=== PATIENT | male | born 1980 | race African-American/Black ===

== ENCOUNTER 2020-02-06 20:29 | Emergency (ER) | payer OTHER ==
[~2020-02-06] VITALS: Ht 182.9 cm; Wt 81.6 kg
--- NOTE | 2020-02-06 20:48 | NUR ---
PT AAOX4. AMBULATORY WITH STEADY GAIT. BIBSELF C/O MID ABD PAIN 10/10 +VOMITING. PT PLACED IN BED 9, ON MONITOR AND PULSE OX, VSS. JUVENILE DETENTION OFFICER AT BEDSIDE FOR EVAL. NO ACUTE DISTRESS NOTED.
--- NOTE | 2020-02-06 20:50 | NUR ---
VIDEOTAPE RECORDING ENGINEER AT BEDSIDE FOR LABS
[2020-02-06] MEDS ORDERED: ONDANSETRON HCL/PF 4 MG/2 ML VIAL IVP ONE (21:00)
[2020-02-06] MEDS ORDERED: PANTOPRAZOLE 40 MG VIAL IV ONE (21:00)
[2020-02-06] MEDS ORDERED: IV NS 0.9% 1,000 ML BAG IV ONE ×2 (21:00→22:00)
[2020-02-06] MEDS ORDERED: FAMOTIDINE/PF INJ 20 MG/2 ML VIAL IV ONE ×2 (21:00→21:07)
[2020-02-06] MEDS ORDERED: DICYCLOMINE HCL 10 MG/5 ML UDC PO ONE (21:00)
[2020-02-06 21:04] LABS: BASOPHILS # (AUTO) 0.1 /CMM (0.0-0.2); BASOPHILS % (AUTO) 1.1 % (0.0-2.0); HEMATOCRIT 43 % (39-51); HEMOGLOBIN 14.1 g/dL (13.5-17.5); LYMPHOCYTES # (AUTO) 0.5 /CMM (0.8-4.8); LYMPHOCYTES % (AUTO) 4.5 % (20.0-44.0); MEAN CORPUSCULAR HGB CONC 33 g/dl (31.0-36.0); MEAN CORPUSCULAR VOLUME 81 fL (80-96); MONOCYTES # (AUTO) 0.9 /CMM (0.1-1.30); MONOCYTES % (AUTO) 8.5 % (2.0-12.0); NEUTROPHILS % (AUTO) 85.9 % (43.0-81.0); PLATELET COUNT (AUTO) 273 /CMM (150-450); RED BLOOD CELL COUNT(AUTO) 5.27 MIL/uL (4.5-6.0); WHITE BLOOD COUNT (AUTO) 10.4 K/uL (4.3-11.0)
[2020-02-06] MEDS ORDERED: ONDANSETRON HCL/PF 4 MG/2 ML VIAL ONE (21:07)
[2020-02-06] MEDS ORDERED: PANTOPRAZOLE 40 MG VIAL ONE (21:07)
[2020-02-06] MEDS ORDERED: DICYCLOMINE HCL 10 MG CAPSULE PO ONE (21:07)
--- NOTE | 2020-02-06 21:07 | NUR ---
Patient is resting comfortably in bed. Easily aroused. VSS.
[2020-02-06 21:16] LABS: ALBUMIN 4.4 g/dL (3.4-5.0); BILIRUBIN,DIRECT 0.2 mg/dL (0.0-0.2); BILIRUBIN,TOTAL 0.7 mg/dL (0.2-1.0); CALCIUM, SERUM 9.4 mg/dL (8.5-10.1); CREATININE 1.4 mg/dL (0.6-1.3); POTASSIUM 2.9 mmol/L (3.5-5.1); TOTAL PROTEIN, SERUM 7.9 g/dL (6.4-8.2)
[2020-02-06] MEDS ORDERED: LIDOCAINE VISCOUS 2% UD 15 ML UDC MM ONE (21:30)
[2020-02-06] MEDS ORDERED: BELLADONNA /PHENOBARB 5 ML UDC 5 ML UDC PO ONE (21:30)
[2020-02-06] MEDS ORDERED: MAG HYDROX/AL HYDROX/SIMETH 30 ML UDC PO ONE (21:30)
[2020-02-06] MEDS ORDERED: MAG HYDROX/AL HYDROX/SIMETH 30 ML UDC ONE (21:38)
[2020-02-06] MEDS ORDERED: LIDOCAINE VISCOUS 2% UD 15 ML UDC ONE (21:38)
[2020-02-06] MEDS ORDERED: POTASSIUM CHLORIDE 20 MEQ TAB.PRT.SR PO ONE ×2 (21:50→22:00)
--- NOTE | 2020-02-06 22:26 | NUR ---
Patient discharged to home in stable condition. Written and verbal after care instructions given. Patient verbalizes understanding of instruction and RX. IV removed. Catheter intact and site benign. Pressure and 4x4 applied to site. No bleeding noted. Pt ambulated with steady gait. Denied pain.
[2020-02-06 22:27] VITALS: BP 121/72
== END 2020-02-06 22:28 | disposition home or self-care (01) ==
LOC: ER 20:33
DX: R10.13 Epigastric pain (principal); E86.0 Dehydration; E87.6 Hypokalemia; K21.9 Gastro-esophageal reflux disease without esophagitis; Z98.890 Other specified postprocedural states
CPT/HCPCS: 36415; 80048; 80076; 83690; 85025; 96361; 96374; 96375; 99284; C9113; J2405; J3490; J7030 ×2